=== PATIENT | male | born 1970 | race Caucasian/White ===

== ENCOUNTER 2021-04-20 06:13 | Day surgery (SDC) | payer OTHER ==
[2021-04-18 14:34] VITALS: BMI 33.0
[2021-04-20] MEDS ORDERED: MIDAZOLAM HCL 2 MG/2 ML SINGLE DOSE VIAL ONE (07:23)
[2021-04-20] MEDS ORDERED: PROPOFOL 20 ML ONE ×4 (07:23→07:47)
[2021-04-20] MEDS ORDERED: SUCCINYLCHOLINE CHLORIDE 200 MG/10 ML SYRINGE ONE (07:23)
[2021-04-20] MEDS ORDERED: LIDOCAINE HCL 2% (20ML MULTI-DOSE VIAL) ONE (07:25)
[2021-04-20] MEDS ORDERED: KETAMINE HCL 200 MG/20 ML VIAL ONE (08:41)
[2021-04-20] MEDS ORDERED: LIDOCAINE HCL 2% (50ML VIAL) SQ ONE (08:45)
[2021-04-20] MEDS ORDERED: ONDANSETRON 4 MG/2 ML VIAL IVPUSH PRN (09:08)
[2021-04-20] MEDS ORDERED: LACTATED RINGERS SOLUTION 1,000 ML IV SCH (09:15)
[2021-04-20 09:51] VITALS: BP 127/54; PULSE 64; TEMP 98
== END 2021-04-20 10:35 | disposition home or self-care (01) ==
LOC: FASU 06:13
PROVIDERS: ATTEND Orthopaedic Surgery Hand Surgery
PROC: 01N50ZZ Release Median Nerve, Open Approach (ICD-10-PCS; principal; 2021-04-20 08:47)
DX: G56.02 Carpal tunnel syndrome, left upper limb (principal)
CPT/HCPCS: 94760